=== PATIENT | female | born 1960 | race Asian ===

== ENCOUNTER → 2018-01-09 15:10 | Outpatient (CLI) | payer MEDICARE, MEDICAID, SELFPAY ==
--- NOTE | 2018-01-09 | DI.CT.S_ITS ---
PROCEDURE: CT CHEST WO CON INDICATIONS: SCLERODERMA TECHNIQUE: Noncontrast 2.0-2.5 mm thick sections acquired from the pulmonary apices to the posterior costophrenic angles. 7 mm thick coronal and sagittal MIP reformats were then acquired. A low radiation dose technique was utilized. COMPARISON: [facility], CT, ABDOMEN/PELVIS WITH CONTRAST, 06/13/2017, 14:39. FINDINGS: Image quality: Diagnostic, given the low radiation dose technique. Lungs and pleura: Lungs are clear with no evidence of interstitial process. No measurable nodules. There is mild linear density in the right anterior sulcus at the base of the middle lobe, probable scar. No pneumothorax or pleural effusion. Mediastinum: Heart size is normal. No pericardial effusion. No mediastinal adenopathy by size criteria. Thoracic aorta and central pulmonary arteries are normal in size. Esophagus is normal in caliber. No hiatal hernia. Bones and chest wall: No suspicious bony lesions. No vertebral body compression fractures. No axillary or supraclavicular adenopathy by size criteria. Thyroid gland appears mildly enlarged. Abdomen: Visualized upper abdomen solid organs and bowel loops appear normal in the absence of contrast. IMPRESSION: 1. No evidence of acute or chronic pulmonary disease. 2. Ill-defined calcifications posterior upper pole of the left kidney, not apparent as a lesion on prior CT with contrast. Renal ultrasound might be considered. Dictated by: Luis Armando Ramirez M.D. on 01/09/2018 at 15:57 Approved by: Luis Armando Ramirez M.D. on 01/09/2018 at 16:03
== END ==
PROVIDERS: PCP Physician Assistant Medical; Visit Provider Internal Medicine Rheumatology
DX: M34.9 Systemic sclerosis, unspecified (principal)
CPT/HCPCS: 71250

== ENCOUNTER → 2018-01-28 12:49 | Outpatient (CLI) | payer MEDICARE, MEDICAID, SELFPAY ==
--- NOTE | 2018-01-28 | DI.US.S_ITS ---
PROCEDURE: US RENAL COMPLETE INDICATIONS: LEFT RENAL CYST TECHNIQUE: Real-time scanning was performed of the kidneys and bladder, with image documentation. COMPARISON: [facility], CT, CT CHEST WO CON, 01/09/2018, 15:17. [facility], US, PELVIC COMPLETE, 08/19/2017, 9:52. [facility], MR, PELVIS W&WO CONTRAST, 07/07/2017, 10:04. [facility], US, PELVIC COMPLETE, 07/01/2017, 8:24. [facility], CT, ABDOMEN/PELVIS WITH CONTRAST, 06/13/2017, 14:39. FINDINGS: Kidneys: Kidneys are normal in size. Right kidney measures 9.9 cm long; left kidney measures 10.8 cm long. Right renal cortical thickness is 1.6 cm; left renal cortical thickness is 1.7 cm. Renal cortical echotexture is normal. No hydronephrosis or nephrolithiasis. No suspicious solid mass lesions. Bladder: Pre-void bladder volume is 650 mL. Post-void residual is 0 mL. Pre-void images demonstrate no intraluminal masses or stones. On pre-void images, neither ureteral jets are noted with color Doppler interrogation. (Of note, ureteral jets may not be detectable in up to 25% of cases due to insufficient differences in specific gravity between ureteral and bladder urine). Miscellaneous: No free pelvic fluid. IMPRESSION: Normal appearance of the kidneys and no renal cysts identified. Dictated by: Felix CORNELIUS Interpreted: Edwin Del Real MD on 01/28/2018 at 14:04 Approved by: Edwin Del Real M.D. on 01/28/2018 at 14:18
== END ==
PROVIDERS: PCP Physician Assistant Medical; Visit Provider Family Medicine
DX: N28.1 Cyst of kidney, acquired (principal)
CPT/HCPCS: 76770

== ENCOUNTER 2018-05-15 11:55 | Emergency (ER) | payer MEDICARE, MEDICAID, SELFPAY ==
[2018-05-15 12:04] VITALS: BP 146/87; PULSE 57; RESP 14; TEMP 36.4; O2SAT 100
--- NOTE | 2018-05-15 12:08 | DI.RAD.S_ITS ---
PROCEDURE: XR CHEST 2V INDICATIONS: chest pain TECHNIQUE: 2 views of the chest were acquired. COMPARISON: [facility], CT, CT CHEST WO CON, 01/09/2018, 15:17. FINDINGS: Surgical changes and devices: None. Lungs and pleura: No pleural effusions or pneumothorax. Lungs are clear. Mediastinum: Mediastinal contours are normal. Heart size is normal. Bones and chest wall: No suspicious bony abnormalities. Soft tissues appear unremarkable. IMPRESSION: No acute cardiopulmonary process is seen. Dictated by: Rizwan Virgen M.D. on 05/15/2018 at 11:47 Approved by: Rizwan Virgen M.D. on 05/15/2018 at 11:48
[2018-05-15] MEDS: ASPIRIN 81 MG TAB 324 MG PO (12:09)
--- NOTE | 2018-05-15 12:19 | ED.CHESTPAIN ---
HPI - Chest Pain <JUAN Villa - Last Filed: 05/15/18 22:13> General Chief Complaint: Chest Pain Stated Complaint: Chest pain Time Seen by Provider: 05/15/18 12:17 Source: patient Mode of arrival: ambulatory Limitations: no limitations History of Present Illness HPI narrative: 58-year-old female with history of chronic neck and upper back pain that is a nonsmokerhere for complaint of having chest pain that started around midnight. she states that she had a visit to her chiropractor yesterday who did a manipulation on her she states that she felt sore after this however the pain to her chest really started around midnight this morning. She denies any nausea vomiting. She denies shortness of breath. She does state it does hurt when she takes a deep breath. No trauma to the chest. Increased pain with movement of the chest wall. No fevers no chills. She does report increased pain with touch to the anterior chest wall. MD complaint: chest pain Related Data Home Medications Medication Instructions Recorded Confirmed clobetasol 1 applic TOPICAL DIRECTED 05/15/18 05/15/18 cyclobenzaprine 10 mg PO TID 05/15/18 05/15/18 olopatadine 1 drp OPHTHALMIC (EYE) DIRECTED 05/15/18 05/15/18 tizanidine 1 dose PO DIRECTED 05/15/18 05/15/18 triamcinolone acetonide 1 applic TOPICAL DIRECTED 05/15/18 05/15/18 Allergies Allergy/AdvReac Type Severity Reaction Status Date / Time No Known Drug Allergies Allergy Verified 05/15/18 12:07 Review of Systems <JUAN Villa - Last Filed: 05/15/18 22:13> Constitutional Denies chills, Denies fatigue, Denies fever(s), Denies lethargy and Denies weakness Eyes Denies change in vision, Denies eye discharge, Denies irritation and Denies loss of vision ENT Ears, Nose, Mouth, and Throat: Denies change in voice, Denies neck pain and Denies sore throat Cardiovascular Reports chest pain, Denies dyspnea and Denies dyspnea on exertion Respiratory Denies cough, Denies dyspnea, Denies dyspnea on exertion and Denies wheezing Gastrointestinal Gastrointestinal: Denies abdominal pain, Denies change in bowel habits, Denies diarrhea, Denies nausea and Denies vomiting Genitourinary Denies hematuria, Denies flank pain, Denies urinary incontinence and Denies urinary urgency Musculoskeletal Denies neck pain Integumentary/Breasts Denies pruritus, Denies erythema, Denies rash and Denies wounds Neurologic Denies confusion, Denies loss of vision and Denies weakness Psychiatric Denies anxiety, Denies confusion, Denies depression, Denies homicidal ideation and Denies suicidal ideation Endocrine Denies fatigue and Denies flushing Hematologic/Lymphatic Denies easy bruising Allergic/Immunologic Denies wheezing Exam <JUAN Villa - Last Filed: 05/15/18 22:13> Initial Vital Signs Initial Vital Signs: Vital Signs Temperature 97.6 F 05/15/18 12:04 Pulse Rate 57 L 05/15/18 12:04 Respiratory Rate 14 05/15/18 12:04 Blood Pressure 146/87 H 05/15/18 12:04 Pulse Oximetry 100 05/15/18 12:04 Const General: cooperative and well developed Nutritional Appearance: well nourished Orientation: alert, awake, oriented x3 and not confused HENPA Mouth: oral mucosae normal and moist mucous membranes Eyes Conjunctivae: conjunctivae normal Sclera: sclerae normal Pupils: PERRL EOM: EOM intact bilaterally Neck Neck: normal visual inspection, trachea midline, No lymphadenopathy, No midline deformity and No JVD Lymphatic: No lymphedema Chest Chest: tenderness Other: tenderness on palpation to the anterior chest wall and to the sternal area with palpation Resp Effort & Inspection: normal respiratory effort, able to speak in complete sentences, no respiratory distress and no use of accessory muscles Auscultation: clear to auscultation bilaterally, no rales, no rhonchi and no wheezes Cardio Rate: regular rate Rhythm: regular rhythm Heart Sounds: no click, no gallops, no murmurs and no rubs Pulses: normal peripheral pulses GI Inspection: non-distended Palpation: soft, no hepatosplenomegaly, No guarding, No pulsatile mass and No tender Auscultation: normal bowel sounds Skin General: no rashes or lesions noted, No jaundice and No petechiae Neuro General: alert, oriented x3, gait normal and no focal motor deficits Speech: speech normal <Kira Turpin DO - Last Filed: 05/16/18 08:38> Initial Vital Signs Initial Vital Signs: Vital Signs Temperature 97.6 F 05/15/18 12:04 Pulse Rate 57 L 05/15/18 12:04 Respiratory Rate 14 05/15/18 12:04 Blood Pressure 146/87 H 05/15/18 12:04 Pulse Oximetry 100 05/15/18 12:04 Scores <JUAN Villa - Last Filed: 05/15/18 22:13> HEART Score Heart Score history: Slightly Suspicious Heart Score EKG: Normal Heart Score Age: 45-64 years old Heart Score risk factors: No known risk factors Heart Score troponin: < or = to normal limit Heart Score Total: 1 Course <JUAN Villa - Last Filed: 05/15/18 22:13> Orders Ordered: Discontinued Medications Aspirin (Aspirin Chew) 324 mg PO NOW ONE Stop: 05/15/18 12:09 Last Admin: 05/15/18 12:09 Dose: 324 mg Vital Signs - 8 hr 05/15/18 12:04 Temperature 97.6 F Pulse Rate 57 L Respiratory Rate 14 Blood Pressure 146/87 H Pulse Oximetry 100 <Kira Turpin DO - Last Filed: 05/16/18 08:38> Orders Ordered: Discontinued Medications Aspirin (Aspirin Chew) 324 mg PO NOW ONE Stop: 05/15/18 12:09 Last Admin: 05/15/18 12:09 Dose: 324 mg Vital Signs - 8 hr 05/15/18 12:04 Temperature 97.6 F Pulse Rate 57 L Respiratory Rate 14 Blood Pressure 146/87 H Pulse Oximetry 100 MDM - Chest Pain <JUAN Villa - Last Filed: 05/15/18 22:13> Lab Data Result diagrams: 05/15/18 12:40 05/15/18 12:40 Lab Results 05/15/18 05/15/18 05/15/18 Range/Units 12:40 12:40 12:40 WBC 4.8 (4.5-11.0) X10^3/uL RBC 4.20 (4.0-5.2) X10^6/uL Hgb 13.3 (12.0-16.0) g/dL Hct 38.8 (36-46) % MCV 92.4 (80-100) fL MCH 31.6 (26-34) PG MCHC 34.3 (30-36) % RDW 12.0 (11.6-14.8) % Plt Count 311 (150-400) X10^3/uL Neut % (Auto) 53.1 (50-75) % Lymph % (Auto) 38.0 (25-40) % [place] % (Auto) 6.6 (3-14) % Eos % (Auto) 1.4 L (2-4) % Baso % (Auto) 0.9 (0-2) % Neut # (Auto) 2500 L (0941-5227) /uL PT 10.9 (10.1-12.7) SECONDS INR 1.0 (0.9-1.3) APTT 36 (26.4-36.2) SECONDS D-Dimer (<230) ng/mL Sodium 140 (137-145) mmol/L Potassium 3.5 (3.4-5.1) mmol/L Chloride 99 (98-107) mmol/L Carbon Dioxide 30 (22-32) mmol/L BUN 11 (7-17) mg/dL Creatinine 0.50 L (0.52-1.04) mg/dL Estimated GFR > 60.0 (>60) mL/min BUN/Creatinine Ratio 22.0 (6-22) Glucose 96 (70-100) mg/dL Calcium 9.7 (8.4-10.2) mg/dL Total Bilirubin 0.4 (0.2-1.3) mg/dL AST 32 (14-36) IU/L ALT 29 (9-52) IU/L Alkaline Phosphatase 56 (38-126) U/L Total Creatine Kinase 114 (30-135) U/L CK-MB (CK-2) 1.29 (<2.37) ng/mL CK-MB (CK-2) Rel Index 1.1 L (1.5-5.0) % Troponin I < 0.012 (0.01-0.034) ng/mL Total Protein 8.0 (6.3-8.2) g/dL Albumin 4.6 (3.5-5.0) g/dL Globulin 3.4 (1.7-4.1) g/dL Albumin/Globulin Ratio 1.4 (1.0-2.8) Lipase 46 (23-300) U/L 09/28/18 Range/Units 12:40 WBC (4.5-11.0) X10^3/uL RBC (4.0-5.2) X10^6/uL Hgb (12.0-16.0) g/dL Hct (36-46) % MCV (80-100) fL MCH (26-34) PG MCHC (30-36) % RDW (11.6-14.8) % Plt Count (150-400) X10^3/uL Neut % (Auto) (50-75) % Lymph % (Auto) (25-40) % [place] % (Auto) (3-14) % Eos % (Auto) (2-4) % Baso % (Auto) (0-2) % Neut # (Auto) (4091-3625) /uL PT (10.1-12.7) SECONDS INR (0.9-1.3) APTT (26.4-36.2) SECONDS D-Dimer < 200 (<230) ng/mL Sodium (137-145) mmol/L Potassium (3.4-5.1) mmol/L Chloride (98-107) mmol/L Carbon Dioxide (22-32) mmol/L BUN (7-17) mg/dL Creatinine (0.52-1.04) mg/dL Estimated GFR (>60) mL/min BUN/Creatinine Ratio (6-22) Glucose (70-100) mg/dL Calcium (8.4-10.2) mg/dL Total Bilirubin (0.2-1.3) mg/dL AST (14-36) IU/L ALT (9-52) IU/L Alkaline Phosphatase (38-126) U/L Total Creatine Kinase (30-135) U/L CK-MB (CK-2) (<2.37) ng/mL CK-MB (CK-2) Rel Index (1.5-5.0) % Troponin I (0.01-0.034) ng/mL Total Protein (6.3-8.2) g/dL Albumin (3.5-5.0) g/dL Globulin (1.7-4.1) g/dL Albumin/Globulin Ratio (1.0-2.8) Lipase (23-300) U/L Imaging Data Chest x-ray: Radiologist's impression: [address] [address] XRay Report Signed Patient: Stefan Resendez#: [id number] : 1Acct:[id number] Age/Sex: 58 / FDate of Service: 05/15/18 Loc: ED Accession Number: [id number] Procedure: XR chest 2V Ordering Provider: Kira Turpin D.O. PROCEDURE: XR CHEST 2V INDICATIONS: chest pain TECHNIQUE: 2 views of the chest were acquired. COMPARISON: [facility], CT, CT CHEST WO CON, 01/09/2018, 15:17. FINDINGS: Surgical changes and devices: None. Lungs and pleura: No pleural effusions or pneumothorax. Lungs are clear. Mediastinum: Mediastinal contours are normal. Heart size is normal. Bones and chest wall: No suspicious bony abnormalities. Soft tissues appear unremarkable. IMPRESSION: No acute cardiopulmonary process is seen. Dictated by: Rizwan Virgen M.D. on 05/15/2018 at 11:47 Approved by: Rizwan Virgen M.D. on 05/15/2018 at 11:48 ECG Data Interpretation: EKG shows normal sinus rhythm with no ST elevation or depression. No ectopy. Ventricular rate is 77. Pr interval of 149. QRS duration of 110. QT of 402. MDM Narrative Medical decision making narrative: EKG shows normal sinus rhythm with no ST elevation or depression. No ectopy. CBC and Chem panel were obtained were unremarkable. Troponin 12 hr post onset of chest pain was negative. D-dimer was obtained and was negative. Pain is reproducible with palpation to the anterior chest wall. Signs and symptoms presents as muscle skeletal pain to the chest wall. [id number] ibuprofen along with her already prescribed muscle relaxer for symptoms. Rest area. Follow up with primary care provider. Return emergency room for worsening symptoms. <Kira Turpin DO - Last Filed: 05/16/18 08:38> Lab Data Attestation: I reviewed the patient's lab results. Lab Results 05/15/18 05/15/18 05/15/18 Range/Units 12:40 12:40 12:40 WBC 4.8 (4.5-11.0) X10^3/uL RBC 4.20 (4.0-5.2) X10^6/uL Hgb 13.3 (12.0-16.0) g/dL Hct 38.8 (36-46) % MCV 92.4 (80-100) fL MCH 31.6 (26-34) PG MCHC 34.3 (30-36) % RDW 12.0 (11.6-14.8) % Plt Count 311 (150-400) X10^3/uL Neut % (Auto) 53.1 (50-75) % Lymph % (Auto) 38.0 (25-40) % [place] % (Auto) 6.6 (3-14) % Eos % (Auto) 1.4 L (2-4) % Baso % (Auto) 0.9 (0-2) % Neut # (Auto) 2500 L (7941-2060) /uL PT 10.9 (10.1-12.7) SECONDS INR 1.0 (0.9-1.3) APTT 36 (26.4-36.2) SECONDS D-Dimer (<230) ng/mL Sodium 140 (137-145) mmol/L Potassium 3.5 (3.4-5.1) mmol/L Chloride 99 (98-107) mmol/L Carbon Dioxide 30 (22-32) mmol/L BUN 11 (7-17) mg/dL Creatinine 0.50 L (0.52-1.04) mg/dL Estimated GFR > 60.0 (>60) mL/min BUN/Creatinine Ratio 22.0 (6-22) Glucose 96 (70-100) mg/dL Calcium 9.7 (8.4-10.2) mg/dL Total Bilirubin 0.4 (0.2-1.3) mg/dL AST 32 (14-36) IU/L ALT 29 (9-52) IU/L Alkaline Phosphatase 56 (38-126) U/L Total Creatine Kinase 114 (30-135) U/L CK-MB (CK-2) 1.29 (<2.37) ng/mL CK-MB (CK-2) Rel Index 1.1 L (1.5-5.0) % Troponin I < 0.012 (0.01-0.034) ng/mL Total Protein 8.0 (6.3-8.2) g/dL Albumin 4.6 (3.5-5.0) g/dL Globulin 3.4 (1.7-4.1) g/dL Albumin/Globulin Ratio 1.4 (1.0-2.8) Lipase 46 (23-300) U/L 05/15/18 Range/Units 12:40 WBC (4.5-11.0) X10^3/uL RBC (4.0-5.2) X10^6/uL Hgb (12.0-16.0) g/dL Hct (36-46) % MCV (80-100) fL MCH (26-34) PG MCHC (30-36) % RDW (11.6-14.8) % Plt Count (150-400) X10^3/uL Neut % (Auto) (50-75) % Lymph % (Auto) (25-40) % [place] % (Auto) (3-14) % Eos % (Auto) (2-4) % Baso % (Auto) (0-2) % Neut # (Auto) (3211-7712) /uL PT (10.1-12.7) SECONDS INR (0.9-1.3) APTT (26.4-36.2) SECONDS D-Dimer < 200 (<230) ng/mL Sodium (137-145) mmol/L Potassium (3.4-5.1) mmol/L Chloride (98-107) mmol/L Carbon Dioxide (22-32) mmol/L BUN (7-17) mg/dL Creatinine (0.52-1.04) mg/dL Estimated GFR (>60) mL/min BUN/Creatinine Ratio (6-22) Glucose (70-100) mg/dL Calcium (8.4-10.2) mg/dL Total Bilirubin (0.2-1.3) mg/dL AST (14-36) IU/L ALT (9-52) IU/L Alkaline Phosphatase (38-126) U/L Total Creatine Kinase (30-135) U/L CK-MB (CK-2) (<2.37) ng/mL CK-MB (CK-2) Rel Index (1.5-5.0) % Troponin I (0.01-0.034) ng/mL Total Protein (6.3-8.2) g/dL Albumin (3.5-5.0) g/dL Globulin (1.7-4.1) g/dL Albumin/Globulin Ratio (1.0-2.8) Lipase (23-300) U/L ECG Data Attestation: I personally reviewed and interpreted this ECG as follows: Prior ECG tracings: not available for review Interpretation: Normal sinus rhythm rate [address] changes or T-wave inversions CT interval 149 QTC 457 Discharge Plan Departure Patient Disposition: Home Clinical Impression: Acute costochondritis Discharge Date/Time: 05/15/18 13:32 Interventions: ED Discharge Assessment Last Done: 05/15/18 13:32 Instructions: DI for Costochondritis Activity Restrictions/Additional Instructions: laboratory results EKG and chest x-ray were obtained today and were negative. Signs and symptoms presents as chest wall muscle skeletal pain use [id number] ibuprofen as needed for any discomfort along with already prescribed muscle relaxer for symptoms. Rest area. Follow up with primary care provider return emergency room for any worsening symptoms. Prescriptions: No Action cyclobenzaprine 10 mg tablet 10 mg PO TID RF: 0 triamcinolone acetonide 0.1 % ointment 1 applic Topical DIRECTED RF: 0 clobetasol 0.05 % ointment 1 applic Topical DIRECTED RF: 0 olopatadine 0.2 % drops 1 drp ophthalmic (eye) DIRECTED RF: 0 tizanidine 4 mg tablet 1 dose PO DIRECTED RF: 0 Referrals: Bibi Samano PA-C [Primary Care Provider] - <Kira Turpin DO - Last Filed: 05/16/18 08:38> Cosign ED Attending Justinature Attestation: I was immediately available in the department for consultation. Documentation has been reviewed. I agree with assessment and plan.
--- NOTE | 2018-05-15 12:35 | ED_ITS ---
HPI - Chest Pain <JUAN Villa - Last Filed: 05/15/18 22:13> General Chief Complaint: Chest Pain Stated Complaint: Chest pain Time Seen by Provider: 05/15/18 12:17 Source: patient Mode of arrival: ambulatory Limitations: no limitations History of Present Illness HPI narrative: 58-year-old female with history of chronic neck and upper back pain that is a nonsmokerhere for complaint of having chest pain that started around midnight. she states that she had a visit to her chiropractor yesterday who did a manipulation on her she states that she felt sore after this however the pain to her chest really started around midnight this morning. She denies any nausea vomiting. She denies shortness of breath. She does state it does hurt when she takes a deep breath. No trauma to the chest. Increased pain with movement of the chest wall. No fevers no chills. She does report increased pain with touch to the anterior chest wall. MD complaint: chest pain Related Data Home Medications Medication Instructions Recorded Confirmed clobetasol 1 applic TOPICAL DIRECTED 05/15/18 05/15/18 cyclobenzaprine 10 mg PO TID 05/15/18 05/15/18 olopatadine 1 drp OPHTHALMIC (EYE) DIRECTED 05/15/18 05/15/18 tizanidine 1 dose PO DIRECTED 05/15/18 05/15/18 triamcinolone acetonide 1 applic TOPICAL DIRECTED 05/15/18 05/15/18 Allergies Allergy/AdvReac Type Severity Reaction Status Date / Time No Known Drug Allergies Allergy Verified 05/15/18 12:07 Review of Systems <JUAN Villa - Last Filed: 05/15/18 22:13> Constitutional Denies chills, Denies fatigue, Denies fever(s), Denies lethargy and Denies weakness Eyes Denies change in vision, Denies eye discharge, Denies irritation and Denies loss of vision ENT Ears, Nose, Mouth, and Throat: Denies change in voice, Denies neck pain and Denies sore throat Cardiovascular Reports chest pain, Denies dyspnea and Denies dyspnea on exertion Respiratory Denies cough, Denies dyspnea, Denies dyspnea on exertion and Denies wheezing Gastrointestinal Gastrointestinal: Denies abdominal pain, Denies change in bowel habits, Denies diarrhea, Denies nausea and Denies vomiting Genitourinary Denies hematuria, Denies flank pain, Denies urinary incontinence and Denies urinary urgency Musculoskeletal Denies neck pain Integumentary/Breasts Denies pruritus, Denies erythema, Denies rash and Denies wounds Neurologic Denies confusion, Denies loss of vision and Denies weakness Psychiatric Denies anxiety, Denies confusion, Denies depression, Denies homicidal ideation and Denies suicidal ideation Endocrine Denies fatigue and Denies flushing Hematologic/Lymphatic Denies easy bruising Allergic/Immunologic Denies wheezing Exam <JUAN Villa - Last Filed: 05/15/18 22:13> Initial Vital Signs Initial Vital Signs: Vital Signs Temperature 97.6 F 05/15/18 12:04 Pulse Rate 57 L 05/15/18 12:04 Respiratory Rate 14 05/15/18 12:04 Blood Pressure 146/87 H 05/15/18 12:04 Pulse Oximetry 100 05/15/18 12:04 Const General: cooperative and well developed Nutritional Appearance: well nourished Orientation: alert, awake, oriented x3 and not confused HENLA Mouth: oral mucosae normal and moist mucous membranes Eyes Conjunctivae: conjunctivae normal Sclera: sclerae normal Pupils: PERRL EOM: EOM intact bilaterally Neck Neck: normal visual inspection, trachea midline, No lymphadenopathy, No midline deformity and No JVD Lymphatic: No lymphedema Chest Chest: tenderness Other: tenderness on palpation to the anterior chest wall and to the sternal area with palpation Resp Effort & Inspection: normal respiratory effort, able to speak in complete sentences, no respiratory distress and no use of accessory muscles Auscultation: clear to auscultation bilaterally, no rales, no rhonchi and no wheezes Cardio Rate: regular rate Rhythm: regular rhythm Heart Sounds: no click, no gallops, no murmurs and no rubs Pulses: normal peripheral pulses GI Inspection: non-distended Palpation: soft, no hepatosplenomegaly, No guarding, No pulsatile mass and No tender Auscultation: normal bowel sounds Skin General: no rashes or lesions noted, No jaundice and No petechiae Neuro General: alert, oriented x3, gait normal and no focal motor deficits Speech: speech normal <Kira Turpin DO - Last Filed: 05/16/18 08:38> Initial Vital Signs Initial Vital Signs: Vital Signs Temperature 97.6 F 05/15/18 12:04 Pulse Rate 57 L 05/15/18 12:04 Respiratory Rate 14 05/15/18 12:04 Blood Pressure 146/87 H 05/15/18 12:04 Pulse Oximetry 100 05/15/18 12:04 Scores <JUAN Villa - Last Filed: 05/15/18 22:13> HEART Score Heart Score history: Slightly Suspicious Heart Score EKG: Normal Heart Score Age: 45-64 years old Heart Score risk factors: No known risk factors Heart Score troponin: < or = to normal limit Heart Score Total: 1 Course <JUAN Villa - Last Filed: 05/15/18 22:13> Orders Ordered: Discontinued Medications Aspirin (Aspirin Chew) 324 mg PO NOW ONE Stop: 05/15/18 12:09 Last Admin: 05/15/18 12:09 Dose: 324 mg Vital Signs - 8 hr 05/15/18 12:04 Temperature 97.6 F Pulse Rate 57 L Respiratory Rate 14 Blood Pressure 146/87 H Pulse Oximetry 100 <Kira Turpin DO - Last Filed: 05/16/18 08:38> Orders Ordered: Discontinued Medications Aspirin (Aspirin Chew) 324 mg PO NOW ONE Stop: 05/15/18 12:09 Last Admin: 05/15/18 12:09 Dose: 324 mg Vital Signs - 8 hr 05/15/18 12:04 Temperature 97.6 F Pulse Rate 57 L Respiratory Rate 14 Blood Pressure 146/87 H Pulse Oximetry 100 MDM - Chest Pain <JUAN Villa - Last Filed: 05/15/18 22:13> Lab Data Result diagrams: 05/15/18 12:40 05/15/18 12:40 Lab Results 05/15/18 05/15/18 05/15/18 Range/Units 12:40 12:40 12:40 WBC 4.8 (4.5-11.0) X10^3/uL RBC 4.20 (4.0-5.2) X10^6/uL Hgb 13.3 (12.0-16.0) g/dL Hct 38.8 (36-46) % MCV 92.4 (80-100) fL MCH 31.6 (26-34) PG MCHC 34.3 (30-36) % RDW 12.0 (11.6-14.8) % Plt Count 311 (150-400) X10^3/uL Neut % (Auto) 53.1 (50-75) % Lymph % (Auto) 38.0 (25-40) % [place] % (Auto) 6.6 (3-14) % Eos % (Auto) 1.4 L (2-4) % Baso % (Auto) 0.9 (0-2) % Neut # (Auto) 2500 L (4135-5455) /uL PT 10.9 (10.1-12.7) SECONDS INR 1.0 (0.9-1.3) APTT 36 (26.4-36.2) SECONDS D-Dimer (<230) ng/mL Sodium 140 (137-145) mmol/L Potassium 3.5 (3.4-5.1) mmol/L Chloride 99 (98-107) mmol/L Carbon Dioxide 30 (22-32) mmol/L BUN 11 (7-17) mg/dL Creatinine 0.50 L (0.52-1.04) mg/dL Estimated GFR > 60.0 (>60) mL/min BUN/Creatinine Ratio 22.0 (6-22) Glucose 96 (70-100) mg/dL Calcium 9.7 (8.4-10.2) mg/dL Total Bilirubin 0.4 (0.2-1.3) mg/dL AST 32 (14-36) IU/L ALT 29 (9-52) IU/L Alkaline Phosphatase 56 (38-126) U/L Total Creatine Kinase 114 (30-135) U/L CK-MB (CK-2) 1.29 (<2.37) ng/mL CK-MB (CK-2) Rel Index 1.1 L (1.5-5.0) % Troponin I < 0.012 (0.01-0.034) ng/mL Total Protein 8.0 (6.3-8.2) g/dL Albumin 4.6 (3.5-5.0) g/dL Globulin 3.4 (1.7-4.1) g/dL Albumin/Globulin Ratio 1.4 (1.0-2.8) Lipase 46 (23-300) U/L 09/28/18 Range/Units 12:40 WBC (4.5-11.0) X10^3/uL RBC (4.0-5.2) X10^6/uL Hgb (12.0-16.0) g/dL Hct (36-46) % MCV (80-100) fL MCH (26-34) PG MCHC (30-36) % RDW (11.6-14.8) % Plt Count (150-400) X10^3/uL Neut % (Auto) (50-75) % Lymph % (Auto) (25-40) % [place] % (Auto) (3-14) % Eos % (Auto) (2-4) % Baso % (Auto) (0-2) % Neut # (Auto) (9228-0075) /uL PT (10.1-12.7) SECONDS INR (0.9-1.3) APTT (26.4-36.2) SECONDS D-Dimer < 200 (<230) ng/mL Sodium (137-145) mmol/L Potassium (3.4-5.1) mmol/L Chloride (98-107) mmol/L Carbon Dioxide (22-32) mmol/L BUN (7-17) mg/dL Creatinine (0.52-1.04) mg/dL Estimated GFR (>60) mL/min BUN/Creatinine Ratio (6-22) Glucose (70-100) mg/dL Calcium (8.4-10.2) mg/dL Total Bilirubin (0.2-1.3) mg/dL AST (14-36) IU/L ALT (9-52) IU/L Alkaline Phosphatase (38-126) U/L Total Creatine Kinase (30-135) U/L CK-MB (CK-2) (<2.37) ng/mL CK-MB (CK-2) Rel Index (1.5-5.0) % Troponin I (0.01-0.034) ng/mL Total Protein (6.3-8.2) g/dL Albumin (3.5-5.0) g/dL Globulin (1.7-4.1) g/dL Albumin/Globulin Ratio (1.0-2.8) Lipase (23-300) U/L Imaging Data Chest x-ray: Radiologist's impression: [address] [address] XRay Report Signed Patient: Stefan Resendez#: [id number] : 1Acct:[id number] Age/Sex: 58 / FDate of Service: 05/15/18 Loc: ED Accession Number: [id number] Procedure: XR chest 2V Ordering Provider: Kira Turpin D.O. PROCEDURE: XR CHEST 2V INDICATIONS: chest pain TECHNIQUE: 2 views of the chest were acquired. COMPARISON: [facility], CT, CT CHEST WO CON, 01/09/2018, 15:17. FINDINGS: Surgical changes and devices: None. Lungs and pleura: No pleural effusions or pneumothorax. Lungs are clear. Mediastinum: Mediastinal contours are normal. Heart size is normal. Bones and chest wall: No suspicious bony abnormalities. Soft tissues appear unremarkable. IMPRESSION: No acute cardiopulmonary process is seen. Dictated by: Rizwan Virgen M.D. on 05/15/2018 at 11:47 Approved by: Rizwan Virgen M.D. on 05/15/2018 at 11:48 ECG Data Interpretation: EKG shows normal sinus rhythm with no ST elevation or depression. No ectopy. Ventricular rate is 77. Pr interval of 149. QRS duration of 110. QT of 402. MDM Narrative Medical decision making narrative: EKG shows normal sinus rhythm with no ST elevation or depression. No ectopy. CBC and Chem panel were obtained were unremarkable. Troponin 12 hr post onset of chest pain was negative. D-dimer was obtained and was negative. Pain is reproducible with palpation to the anterior chest wall. Signs and symptoms presents as muscle skeletal pain to the chest wall. Aqla-caz-kdzsbbh ibuprofen along with her already prescribed muscle relaxer for symptoms. Rest area. Follow up with primary care provider. Return emergency room for worsening symptoms. <Kira Turpin DO - Last Filed: 05/16/18 08:38> Lab Data Attestation: I reviewed the patient's lab results. Lab Results 05/15/18 05/15/18 05/15/18 Range/Units 12:40 12:40 12:40 WBC 4.8 (4.5-11.0) X10^3/uL RBC 4.20 (4.0-5.2) X10^6/uL Hgb 13.3 (12.0-16.0) g/dL Hct 38.8 (36-46) % MCV 92.4 (80-100) fL MCH 31.6 (26-34) PG MCHC 34.3 (30-36) % RDW 12.0 (11.6-14.8) % Plt Count 311 (150-400) X10^3/uL Neut % (Auto) 53.1 (50-75) % Lymph % (Auto) 38.0 (25-40) % [place] % (Auto) 6.6 (3-14) % Eos % (Auto) 1.4 L (2-4) % Baso % (Auto) 0.9 (0-2) % Neut # (Auto) 2500 L (4559-8777) /uL PT 10.9 (10.1-12.7) SECONDS INR 1.0 (0.9-1.3) APTT 36 (26.4-36.2) SECONDS D-Dimer (<230) ng/mL Sodium 140 (137-145) mmol/L Potassium 3.5 (3.4-5.1) mmol/L Chloride 99 (98-107) mmol/L Carbon Dioxide 30 (22-32) mmol/L BUN 11 (7-17) mg/dL Creatinine 0.50 L (0.52-1.04) mg/dL Estimated GFR > 60.0 (>60) mL/min BUN/Creatinine Ratio 22.0 (6-22) Glucose 96 (70-100) mg/dL Calcium 9.7 (8.4-10.2) mg/dL Total Bilirubin 0.4 (0.2-1.3) mg/dL AST 32 (14-36) IU/L ALT 29 (9-52) IU/L Alkaline Phosphatase 56 (38-126) U/L Total Creatine Kinase 114 (30-135) U/L CK-MB (CK-2) 1.29 (<2.37) ng/mL CK-MB (CK-2) Rel Index 1.1 L (1.5-5.0) % Troponin I < 0.012 (0.01-0.034) ng/mL Total Protein 8.0 (6.3-8.2) g/dL Albumin 4.6 (3.5-5.0) g/dL Globulin 3.4 (1.7-4.1) g/dL Albumin/Globulin Ratio 1.4 (1.0-2.8) Lipase 46 (23-300) U/L 05/15/18 Range/Units 12:40 WBC (4.5-11.0) X10^3/uL RBC (4.0-5.2) X10^6/uL Hgb (12.0-16.0) g/dL Hct (36-46) % MCV (80-100) fL MCH (26-34) PG MCHC (30-36) % RDW (11.6-14.8) % Plt Count (150-400) X10^3/uL Neut % (Auto) (50-75) % Lymph % (Auto) (25-40) % [place] % (Auto) (3-14) % Eos % (Auto) (2-4) % Baso % (Auto) (0-2) % Neut # (Auto) (9531-3652) /uL PT (10.1-12.7) SECONDS INR (0.9-1.3) APTT (26.4-36.2) SECONDS D-Dimer < 200 (<230) ng/mL Sodium (137-145) mmol/L Potassium (3.4-5.1) mmol/L Chloride (98-107) mmol/L Carbon Dioxide (22-32) mmol/L BUN (7-17) mg/dL Creatinine (0.52-1.04) mg/dL Estimated GFR (>60) mL/min BUN/Creatinine Ratio (6-22) Glucose (70-100) mg/dL Calcium (8.4-10.2) mg/dL Total Bilirubin (0.2-1.3) mg/dL AST (14-36) IU/L ALT (9-52) IU/L Alkaline Phosphatase (38-126) U/L Total Creatine Kinase (30-135) U/L CK-MB (CK-2) (<2.37) ng/mL CK-MB (CK-2) Rel Index (1.5-5.0) % Troponin I (0.01-0.034) ng/mL Total Protein (6.3-8.2) g/dL Albumin (3.5-5.0) g/dL Globulin (1.7-4.1) g/dL Albumin/Globulin Ratio (1.0-2.8) Lipase (23-300) U/L ECG Data Attestation: I personally reviewed and interpreted this ECG as follows: Prior ECG tracings: not available for review Interpretation: Normal sinus rhythm rate [address] changes or T-wave inversions TN interval 149 QTC 457 Discharge Plan Departure Patient Disposition: Home Clinical Impression: Acute costochondritis Discharge Date/Time: 05/15/18 13:32 Interventions: ED Discharge Assessment Last Done: 05/15/18 13:32 Instructions: DI for Costochondritis Activity Restrictions/Additional Instructions: laboratory results EKG and chest x-ray were obtained today and were negative. Signs and symptoms presents as chest wall muscle skeletal pain use over-the- counter ibuprofen as needed for any discomfort along with already prescribed muscle relaxer for symptoms. Rest area. Follow up with primary care provider return emergency room for any worsening symptoms. Prescriptions: No Action cyclobenzaprine 10 mg tablet 10 mg PO TID RF: 0 triamcinolone acetonide 0.1 % ointment 1 applic Topical DIRECTED RF: 0 clobetasol 0.05 % ointment 1 applic Topical DIRECTED RF: 0 olopatadine 0.2 % drops 1 drp ophthalmic (eye) DIRECTED RF: 0 tizanidine 4 mg tablet 1 dose PO DIRECTED RF: 0 Referrals: Bibi Samano PA-C [Primary Care Provider] - <Kira Turpin DO - Last Filed: 05/16/18 08:38> Cosign ED Attending Justinature Attestation: I was immediately available in the department for consultation. Documentation has been reviewed. I agree with assessment and plan.
[2018-05-15 12:47] LABS: Add Manual Diff / Slide Review NO; Basophils Percent Auto 0.9 % (0-2); Eosinophils Percent Auto 1.4 % (2-4); Hematocrit 38.8 % (36-46); Hemoglobin 13.3 g/dL (12.0-16.0); Mean Corpuscular HGB Conc 34.3 % (30-36); Mean Corpuscular Hemoglobin 31.6 PG (26-34); Mean Corpuscular Volume 92.4 fL (80-100); Monocytes Percent Auto 6.6 % (3-14); Neutrophils Absolute Auto 2500 /uL (3000-5900); Neutrophils Percent Auto 53.1 % (50-75); Platelet Count 311 X10^3/uL (150-400); White Blood Cell Count 4.8 X10^3/uL (4.5-11.0)
[2018-05-15 12:54] LABS: Prothrombin Time 10.9 SECONDS (10.1-12.7)
[2018-05-15 12:56] LABS: PTT Partial Thromboplastin Tim 36 SECONDS (26.4-36.2)
[2018-05-15 12:57] LABS: Alanine Aminotransferase 29 IU/L (9-52); Albumin 4.6 g/dL (3.5-5.0); Albumin Globulin Ratio 1.4 (1.0-2.8); Alkaline Phosphatase 56 U/L (38-126); Aspartate Aminotransferase 32 IU/L (14-36); Bilirubin Total 0.4 mg/dL (0.2-1.3); Blood Urea Nitrogen 11 mg/dL (7-17); Calcium 9.7 mg/dL (8.4-10.2); Carbon Dioxide 30 mmol/L (22-32); Chloride 99 mmol/L (98-107); Creatine Kinase 114 U/L (30-135); Estimated Glomerular Filt Rate > 60.0 mL/min (>60); Globulin 3.4 g/dL (1.7-4.1); Glucose 96 mg/dL (70-100); HEMOLYSIS < 15 (0-50); Lipase 46 U/L (23-300); Potassium 3.5 mmol/L (3.4-5.1); Sodium 140 mmol/L (137-145)
[2018-05-15 13:06] LABS: D Dimer < 200 ng/mL (<230)
[2018-05-15 13:09] LABS: Troponin I < 0.012 ng/mL (0.01-0.034)
[2018-05-15 13:13] LABS: CKMB % Relative Index 1.1 % (1.5-5.0); Creatine Kinase MB 1.29 ng/mL (<2.37)
[2018-05-15 13:32] VITALS: BP 113/67; PULSE 59; RESP 18; O2SAT 100
== END 2018-05-15 13:32 | disposition home or self-care (01) ==
PROVIDERS: Emergency Medicine; Emergency Provider Nurse Practitioner Family; PCP Physician Assistant Medical
DX: M94.0 Chondrocostal junction syndrome [Tietze] (principal)
CPT/HCPCS: 71046; 80053; 82550; 82553; 83690; 84484; 85025; 85379; 85610; 85730; 93005; 99282; 99285

== ENCOUNTER 2018-08-01 12:33 | Emergency (ER) | payer MEDICARE, MEDICAID, SELFPAY ==
[2018-08-01 12:36] VITALS: BP 139/83; PULSE 60; RESP 16; TEMP 36.9; O2SAT 100
--- NOTE | 2018-08-01 12:36 | DI.CT.S_ITS ---
PROCEDURE: CT HEAD/BRAIN WO CON INDICATIONS: double vision TECHNIQUE: Noncontrast 4.5 mm thick angled axial sections acquired from the foramen magnum to the vertex, with coronal and sagittal reformats. For radiation dose reduction, the following was used: automated exposure control, adjustment of mA and/or kV according to patient size. COMPARISON: [facility], CT, CT CHEST WO CON, 01/09/2018, 15:17. [facility], CT, ABDOMEN/PELVIS WITH CONTRAST, 06/13/2017, 14:39. FINDINGS: Image quality: Excellent. CSF spaces: Basal cisterns are patent. No extra-axial fluid collections. Ventricles are normal in size and shape. Brain: No midline shift. No intracranial masses or hemorrhage. Bush-white matter interface is normal. Skull and face: Calvarium and visualized facial bones are intact, without suspicious lesions. Sinuses: Visualized sinuses and mastoids are clear. IMPRESSION: No acute intracranial abnormality. Dictated by: Meliton Morgan M.D. on 08/01/2018 at 13:32 Approved by: Meliton Morgan M.D. on 08/01/2018 at 13:41
[2018-08-01 13:00] VITALS: BP 146/100; PULSE 50; O2SAT 100
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
[2018-08-01] MEDS: ONDANSETRON 4 MG ODT PO (13:13)
[2018-08-01] MEDS: KETOROLAC 60 MG/2 ML VIAL IM (13:13)
[2018-08-01 13:30] VITALS: BP 115/70; PULSE 52; O2SAT 100
[2018-08-01 14:15] VITALS: BP 138/77; PULSE 53; O2SAT 100
== END 2018-08-01 14:16 | disposition home or self-care (01) ==
PROVIDERS: Emergency Provider Emergency Medicine; PCP Physician Assistant Medical
DX: S09.90XA Unspecified injury of head, initial encounter (principal); R51 Headache; W22.8XXA Striking against or struck by other objects, initial encounter
CPT/HCPCS: 70450; 96372; 99282; 99284; J1885

== ENCOUNTER 2019-05-20 18:06 | Emergency (ER) | payer MEDICARE, MEDICAID, SELFPAY ==
[2019-05-20 18:24] VITALS: BP 142/76; PULSE 58; RESP 14; TEMP 36.5; O2SAT 98; BMI 21.3
[2019-05-20 18:35] LABS: Bacteria Urine None Seen; WBC Urine None Seen (0-5/HPF)
[2019-05-20 18:41] LABS: Culture Indicated Urine Cult Not Indicated; RBC Urine 5-10/HPF (0-5/HPF)
[2019-05-20 18:59] LABS: Add Manual Diff / Slide Review NO; Basophils Absolute Auto 0 /uL (0-100); Basophils Percent Auto 0.7 % (0-2); Eosinophils Absolute Auto 300 /uL (0-450); Eosinophils Percent Auto 6.5 % (2-4); Hematocrit 37.8 % (36-46); Hemoglobin 12.7 g/dL (12.0-16.0); Lymphocytes Absolute Auto 1700 /uL (1100-4500); Mean Corpuscular HGB Conc 33.5 % (30-36); Mean Corpuscular Hemoglobin 31.6 PG (26-34); Mean Corpuscular Volume 94.4 fL (80-100); Monocytes Absolute Auto 300 /uL (0-900); Monocytes Percent Auto 6.8 % (3-14); Neutrophils Absolute Auto 1900 /uL (1500-7000); Platelet Count 319 X10^3/uL (150-400); Red Blood Cell Count 4.01 X10^6/uL (4.0-5.2); Red Cell Distribution Width 13.2 % (11.6-14.8); White Blood Cell Count 4.2 X10^3/uL (4.5-11.0)
[2019-05-20 19:08] LABS: PTT Partial Thromboplastin Tim 37 SECONDS (26.4-36.2)
[2019-05-20 19:09] LABS: Alanine Aminotransferase 26 IU/L (9-52); Albumin 4.8 g/dL (3.5-5.0); Albumin Globulin Ratio 1.4 (1.0-2.8); Alkaline Phosphatase 68 U/L (38-126); Aspartate Aminotransferase 35 IU/L (14-36); Bilirubin Total 0.6 mg/dL (0.2-1.3); Blood Urea Nitrogen 10 mg/dL (7-17); Calcium 9.8 mg/dL (8.4-10.2); Carbon Dioxide 28 mmol/L (22-32); Chloride 99 mmol/L (98-107); Estimated Glomerular Filt Rate > 60.0 mL/min (>60); Globulin 3.5 g/dL (1.7-4.1); Glucose 103 mg/dL (70-100); HEMOLYSIS < 15 (0-50); Lipase 40 U/L (23-300); Potassium 3.6 mmol/L (3.4-5.1); Sodium 138 mmol/L (137-145); Total Protein 8.3 g/dL (6.3-8.2)
--- NOTE | 2019-05-20 19:32 | DI.CT.S_ITS ---
PROCEDURE: CT KIDNEY URETER BLADDER (KUB) INDICATIONS: RLQ pain, hematuria, stone? TECHNIQUE: Noncontrast 5 mm thick sections acquired from the diaphragms to the symphysis. 5 mm thick coronal and sagittal reformats were then performed. For radiation dose reduction, the following was used: automated exposure control, adjustment of mA and/or kV according to patient size. COMPARISON: [facility], CT, ABDOMEN/PELVIS WITH CONTRAST, 06/13/2017, 14:39. FINDINGS: Image quality: Excellent. Lung bases: Lung bases are clear. Heart size is normal. Urinary system: Both kidneys are normal in size. No kidney stones. No hydronephrosis or perinephric fat stranding. Both ureters appear non-dilated throughout their expected courses. Bladder wall thickness is normal; no calcified bladder stones. Other solid organs: Liver is normal in size. Gallbladder is within normal limits. Pancreas is normal in contours. Spleen is normal in size. No adrenal nodules. Peritoneum and bowel: Unenhanced bowel loops demonstrate normal wall thickness and caliber. No free fluid or air. Normal appendix. Nodes and vessels: No retroperitoneal or mesenteric adenopathy by size criteria. Aorta and inferior vena cava are normal in caliber. Abdominal wall: No ventral hernias. Pelvis: No free pelvic fluid. No inguinal hernias or adenopathy. Bones: No suspicious bony lesions. No vertebral body compression fractures. IMPRESSION: 1. No evidence of urinary tract calcification, nor obstruction. 2. Normal appendix. Dictated by: Austin Anna M.D. on 05/20/2019 at 19:54 Approved by: Austin Anna M.D. on 05/20/2019 at 19:55
--- NOTE | 2019-05-20 19:38 | ED.ABDPAIN ---
HPI - Abdominal Pain General Chief Complaint: Abdominal Pain Stated Complaint: right lower abdominal pain, sent for stat CT Time Seen by Provider: 05/20/19 18:18 Source: patient Mode of arrival: Ambulatory Limitations: no limitations History of Present Illness HPI narrative: 59-year-old female nonsmoker with noncontributory medical history presents from her primary care provider's office with a chief complaint of right lower quadrant pain over the past few days and an office urinalysis noting blood in the absence of infection. Patient states her pain is worse when she moves and improves with rest but feels like it has radiated down a bit from her side into her groin. Her primary is concern for a kidney stone. She denies any change in her appetite nor she had any fever or chills. She has had no nausea, vomiting but occasionally some loose stool. She denies recent travel, injury, use of antibiotics or exposure to bad food. MD complaint: abdominal pain Onset (ago): day(s) Pain Consistency: colicky Location: RLQ Severity: mild Quality: cramping Radiation: R flank Relieving factors: rest Exacerbating factors: movement Associated symptoms: denies other symptoms Related Data Home Medications Medication Instructions Recorded Confirmed clobetasol 1 applic TOPICAL DIRECTED 05/15/18 08/01/18 cyclobenzaprine 10 mg PO TID 05/15/18 08/01/18 olopatadine 1 drp OPHTHALMIC (EYE) DIRECTED 05/15/18 08/01/18 triamcinolone acetonide 1 applic TOPICAL DIRECTED 05/15/18 08/01/18 Allergies Allergy/AdvReac Type Severity Reaction Status Date / Time No Known Drug Allergies Allergy Verified 05/20/19 18:24 Review of Systems Constitutional Constitutional: Denies chills, Denies fatigue, Denies fever(s), Denies frequent falls, Denies lethargy and Denies weakness Eyes Eyes: Denies change in vision, Denies eye discharge, Denies irritation and Denies loss of vision ENT Ears, Nose, Mouth, and Throat: Denies change in voice, Denies dizziness, Denies neck pain, Denies sore throat and Denies throat swelling Cardiovascular Cardiovascular: Denies chest pain, Denies irregular heart rhythm, Denies lightheadedness, Denies palpitations, Denies dyspnea, Denies dyspnea on exertion and Denies orthopnea Respiratory Respiratory: Denies cough, Denies dyspnea, Denies dyspnea on exertion and Denies wheezing Gastrointestinal Gastrointestinal: Reports abdominal pain, Denies change in bowel habits, Denies diarrhea, Denies nausea and Denies vomiting Genitourinary Genitourinary: Denies hematuria, Denies flank pain, Denies urinary incontinence and Denies urinary urgency Musculoskeletal Musculoskeletal: Denies back pain, Denies muscle weakness, Denies neck pain, Denies numbness and Denies tingling Integumentary/Breasts Skin/Breast: Denies pruritus, Denies erythema, Denies rash and Denies wounds Neurologic Neurologic: Denies behavioral changes, Denies confusion, Denies dizziness, Denies frequent falls, Denies loss of vision, Denies numbness, Denies tingling and Denies weakness Psychiatric Psychiatric: Denies anxiety, Denies behavioral changes, Denies confusion, Denies depression, Denies homicidal ideation and Denies suicidal ideation Endocrine Endocrine: Denies fatigue, Denies flushing and Denies palpitations Hematologic/Lymphatic Hematologic/Lymphatic: Denies easy bruising Allergic/Immunologic Allergic/Immunologic: Denies urticaria, Denies throat swelling and Denies wheezing [facility] Medical History Chronic back pain (Acute) Social History Smoking Status: Never smoker Social History Smoking Status: Never smoker Exam Narrative Exam Narrative: GENERAL: [59] year old patient appears stated age. Well-nourished, well-developed patient, in mild distress. HEAD: Atraumatic. Normocephalic. EYES: Pupils equal round and reactive. Extraocular motions intact. No scleral icterus. No injection or drainage. ENT: Nose without bleeding, purulent drainage. Throat without erythema, tonsillar hypertrophy or exudate. Airway patent. NECK: Trachea midline. Non tender CARDIOVASCULAR: Regular rate and rhythm without murmurs, gallops, or rubs. RESPIRATORY: Clear to auscultation. Breath sounds equal bilaterally. No wheezes, rales, or rhonchi. GASTROINTESTINAL: Abdomen soft, mild tenderness in the right lower quadrant no guarding, nondistended. EXTREMITIES: No edema or joint tenderness. BACK: Nontender without deformity or crepitance. No flank tenderness. NEURO: AOx3. SKIN: No rash or erythema of visible areas Initial Vital Signs Initial Vital Signs: Vital Signs Temperature 97.7 F 05/20/19 18:24 Pulse Rate 58 L 05/20/19 18:24 Respiratory Rate 14 05/20/19 18:24 Blood Pressure 142/76 H 05/20/19 18:24 Pulse Oximetry 98 05/20/19 18:24 Course Orders Ordered: ED Orders 05/20/19 18:19 Urine Microscopic Stat 05/20/19 18:50 Complete Blood Count AUTO DIFF Stat Comprehensive Metabolic Panel Stat Lipase Stat Partial Thromboplastin Time Stat Prothrombin Time INR Stat 05/20/19 19:32 CT kidney ureter bladder (KUB) Stat Discontinued Medications Sodium Chloride (Normal Saline 0.9%) 1,000 mls @ 1,000 mls/hr IV BOLUS ONE Stop: 05/20/19 20:31 Last Infusion: 05/20/19 21:09 Dose: 0 mls/hr Documented by: Admin: 05/20/19 19:55 Dose: 1,000 mls/hr Documented by: NARGIS Vital Signs Vital signs: Vital Signs - 8 hr 05/20/19 20:31 Pulse Rate 54 L Respiratory Rate 16 Blood Pressure [Right Arm] 121/85 Pulse Oximetry 100 MDM - Abdominal Pain Lab Data Result diagrams: 05/20/19 18:50 05/20/19 18:50 Labs: Lab Results 05/20/19 05/20/19 05/20/19 Range/Units 18:19 18:50 18:50 WBC 4.2 L (4.5-11.0) X10^3/uL RBC 4.01 (4.0-5.2) X10^6/uL Hgb 12.7 (12.0-16.0) g/dL Hct 37.8 (36-46) % MCV 94.4 (80-100) fL MCH 31.6 (26-34) PG MCHC 33.5 (30-36) % RDW 13.2 (11.6-14.8) % Plt Count 319 (150-400) X10^3/uL Neut % (Auto) 45.0 L (50-75) % Lymph % (Auto) 41.0 H (25-40) % Payette % (Auto) 6.8 (3-14) % Eos % (Auto) 6.5 H (2-4) % Baso % (Auto) 0.7 (0-2) % Neut # (Auto) 1900 (0574-7003) /uL Lymph # (Auto) 1700 (2699-5341) /uL Payette # (Auto) 300 (0-900) /uL Eos # (Auto) 300 (0-450) /uL Baso # (Auto) 0 (0-100) /uL PT 11.0 (10.1-12.7) SECONDS INR 1.0 (0.9-1.3) APTT 37 H (26.4-36.2) SECONDS Sodium (137-145) mmol/L Potassium (3.4-5.1) mmol/L Chloride (98-107) mmol/L Carbon Dioxide (22-32) mmol/L BUN (7-17) mg/dL Creatinine (0.52-1.04) mg/dL Estimated GFR (>60) mL/min BUN/Creatinine Ratio (6-22) Glucose (70-100) mg/dL Calcium (8.4-10.2) mg/dL Total Bilirubin (0.2-1.3) mg/dL AST (14-36) IU/L ALT (9-52) IU/L Alkaline Phosphatase (38-126) U/L Total Protein (6.3-8.2) g/dL Albumin (3.5-5.0) g/dL Globulin (1.7-4.1) g/dL Albumin/Globulin Ratio (1.0-2.8) Lipase (23-300) U/L Urine RBC 5-10/hpf H (0-5/HPF) Urine WBC None seen (0-5/HPF) Urine Bacteria None seen (None) Ur Culture Indicated? Cult not indicated 05/20/19 Range/Units 18:50 WBC (4.5-11.0) X10^3/uL RBC (4.0-5.2) X10^6/uL Hgb (12.0-16.0) g/dL Hct (36-46) % MCV (80-100) fL MCH (26-34) PG MCHC (30-36) % RDW (11.6-14.8) % Plt Count (150-400) X10^3/uL Neut % (Auto) (50-75) % Lymph % (Auto) (25-40) % Payette % (Auto) (3-14) % Eos % (Auto) (2-4) % Baso % (Auto) (0-2) % Neut # (Auto) (3977-4092) /uL Lymph # (Auto) (9254-4580) /uL Payette # (Auto) (0-900) /uL Eos # (Auto) (0-450) /uL Baso # (Auto) (0-100) /uL PT (10.1-12.7) SECONDS INR (0.9-1.3) APTT (26.4-36.2) SECONDS Sodium 138 (137-145) mmol/L Potassium 3.6 (3.4-5.1) mmol/L Chloride 99 (98-107) mmol/L Carbon Dioxide 28 (22-32) mmol/L BUN 10 (7-17) mg/dL Creatinine 0.50 L (0.52-1.04) mg/dL Estimated GFR > 60.0 (>60) mL/min BUN/Creatinine Ratio 20.0 (6-22) Glucose 103 H (70-100) mg/dL Calcium 9.8 (8.4-10.2) mg/dL Total Bilirubin 0.6 (0.2-1.3) mg/dL AST 35 (14-36) IU/L ALT 26 (9-52) IU/L Alkaline Phosphatase 68 (38-126) U/L Total Protein 8.3 H (6.3-8.2) g/dL Albumin 4.8 (3.5-5.0) g/dL Globulin 3.5 (1.7-4.1) g/dL Albumin/Globulin Ratio 1.4 (1.0-2.8) Lipase 40 (23-300) U/L Urine RBC (0-5/HPF) Urine WBC (0-5/HPF) Urine Bacteria (None) Ur Culture Indicated? Point of care testing: Urine Dip Bedside Urine Glucose Negative Bedside Urine Bilirubin - Negative Bedside Urine Ketone - Negative Urine Specific Gates 1.005 Bedside Urine Occult Blood ++ Bedside Urine pH 7.0 Bedside Urine Protein - Negative Bedside Urine Urobilinogen - Negative Bedside Urine Nitrite - Negative Bedside Urine Leukocytes - Negative Esterase Imaging Data CT KUB: Radiologist's impression: Stefan Resendez C 59 F [address] [address] [address] Scan Report Signed Patient: Stefan Resendez CMR#: [id number] : [id number] Age/Sex: 59 / FDate of Service: 05/20/19 Loc: ED Accession Number: [id number] Procedure: CT kidney ureter bladder (KUB) Ordering Provider: Mario Christiansen D.O. PROCEDURE: CT KIDNEY URETER BLADDER (KUB) INDICATIONS: RLQ pain, hematuria, stone? TECHNIQUE: Noncontrast 5 mm thick sections acquired from the diaphragms to the symphysis. 5 mm thick coronal and sagittal reformats were then performed. For radiation dose reduction, the following was used: automated exposure control, adjustment of mA and/or kV according to patient size. COMPARISON: Located Within [facility], CT, ABDOMEN/PELVIS WITH CONTRAST, 06/13/2017, 14:39. FINDINGS: Image quality: Excellent. Lung bases: Lung bases are clear. Heart size is normal. Urinary system: Both kidneys are normal in size. No kidney stones. No hydronephrosis or perinephric fat stranding. Both ureters appear non-dilated throughout their expected courses. Bladder wall thickness is normal; no calcified bladder stones. Other solid organs: Liver is normal in size. Gallbladder is within normal limits. Pancreas is normal in contours. Spleen is normal in size. No adrenal nodules. Peritoneum and bowel: Unenhanced bowel loops demonstrate normal wall thickness and caliber. No free fluid or air. Normal appendix. Nodes and vessels: No retroperitoneal or mesenteric adenopathy by size criteria. Aorta and inferior vena cava are normal in caliber. Abdominal wall: No ventral hernias. Pelvis: No free pelvic fluid. No inguinal hernias or adenopathy. Bones: No suspicious bony lesions. No vertebral body compression fractures. IMPRESSION: 1. No evidence of urinary tract calcification, nor obstruction. 2. Normal appendix. Dictated by: Austin Anna M.D. on 05/20/2019 at 19:54 Approved by: Austin Anna M.D. on 05/20/2019 at 19:55 Discharge Plan Departure Patient Disposition: Home Clinical Impression: Abdominal pain in female patient Discharge Date/Time: 05/20/19 21:28 Instructions: DI for Abdominal Pain-Adult Activity Restrictions/Additional Instructions: *You have been diagnosed with [ Right lower quadrant pain ] *What to do: *Take medications as directed *Follow up with your primary care provider in 2-3 days, call for an appointment. Let them know you were seen in the Emergency Department and that we ask that you be seen in follow up *Return to ER if you should have any new, worsening or concerning symptoms Prescriptions: No Action cyclobenzaprine 10 mg tablet 10 mg PO TID RF: 0 triamcinolone acetonide 0.1 % ointment 1 applic Topical DIRECTED RF: 0 clobetasol 0.05 % ointment 1 applic Topical DIRECTED RF: 0 olopatadine 0.2 % drops 1 drp ophthalmic (eye) DIRECTED RF: 0 Referrals: Bibi Samano PA-C [Primary Care Provider] -
[2019-05-20] MEDS: SODIUM CHLORIDE 0.9% 1,000 ML 1000 ML IV (19:55)
[2019-05-20 20:31] VITALS: BP 121/85; PULSE 54; RESP 16; O2SAT 100
== END 2019-05-20 21:28 | disposition home or self-care (01) ==
PROVIDERS: Emergency Provider Emergency Medicine; PCP Physician Assistant Medical
DX: R10.31 Right lower quadrant pain (principal)
CPT/HCPCS: 36415; 74176; 80053; 81003; 81015; 83690; 85025; 85610; 85730; 96360; 99283; 99284

== ENCOUNTER → 2019-08-10 10:13 | Outpatient (CLI) | payer MEDICARE, MEDICAID, SELFPAY ==
--- NOTE | 2019-08-10 | DI.CT.S_ITS ---
PROCEDURE: CT CERVICAL SPINE WO CON INDICATIONS: Cervicalgia TECHNIQUE: Noncontrast 3 mm thick sections acquired from the skull base to the T4 level. Sagittal and coronal reformats were then constructed. For radiation dose reduction, the following was used: automated exposure control, adjustment of mA and/or kV according to patient size. COMPARISON: None. FINDINGS: Image quality: Excellent. Bones: No fractures or dislocations. Visualized superior ribs are intact. Soft tissues: Prevertebral soft tissues are normal in thickness. No paravertebral hematomas. No apical pneumothoraces. The thyroid gland has a heterogeneous appearance and low density nodules are present throughout. IMPRESSION: 1. No acute cervical spine injury. 2. Low-density thyroid nodules which are incompletely characterized. If further characterization is warranted, non-emergent thyroid ultrasound could be used. Dictated by: Zo Garcia M.D. on 08/10/2019 at 9:58 Approved by: Zo Garcia M.D. on 08/10/2019 at 10:00
== END ==
PROVIDERS: PCP Physician Assistant Medical; Visit Provider Physician Assistant Medical
DX: M54.2 Cervicalgia (principal); E04.2 Nontoxic multinodular goiter
CPT/HCPCS: 72125

== ENCOUNTER → 2020-03-23 13:08 | Outpatient (CLI) | payer MEDICARE, MEDICAID, SELFPAY ==
--- NOTE | 2020-03-23 | DI.MG.S_ITS ---
BILATERAL DIGITAL DIAGNOSTIC MAMMOGRAM 3D/2D: 03/23/2020 CLINICAL: Right breast pain. Comparison is made to exams dated: 05/19/2019 mammogram, 04/06/2018 mammogram, and 04/02/2017 mammogram - [facility]. The tissue of both breasts is heterogeneously dense. This may lower the sensitivity of mammography. No significant masses, calcifications, or other findings are seen in either breast. IMPRESSION: NEGATIVE There is no abnormality seen in the right breast to correspond with the diffuse pain, however, clinical followup is recommended. There is no mammographic evidence of malignancy. A 1 year screening mammogram is recommended. This exam was interpreted at Station ID: [id number]. NOTE: For mammograms, a report in lay terms will be sent to the patient. Approximately 15% of breast malignancies will not be visualized mammographically. In the management of a palpable breast mass, a negative mammogram must not discourage biopsy of a clinically suspicious lesion. Electronically Signed By: Agustin ghotra/maggie:03/23/2020 14:04:09 letter sent: Clinical Evaluation ACR BI-RADS Category 1: Negative [id number]
== END ==
PROVIDERS: PCP Physician Assistant Medical; Referring Provider Physician Assistant Medical; Visit Provider Physician Assistant Medical
DX: N64.4 Mastodynia (principal)
CPT/HCPCS: 77066; G0279

== ENCOUNTER → 2020-04-03 09:40 | Outpatient (CLI) | payer MEDICARE, MEDICAID, SELFPAY ==
--- NOTE | 2020-04-03 | DI.US.S_ITS ---
ULTRASOUND OF RIGHT BREAST: 04/03/2020 CLINICAL: Right breast pain. Comparison is made to exams dated: 03/23/2020 mammogram - [facility], 05/19/2019 mammogram, 04/06/2018 mammogram, and 04/02/2017 mammogram - [facility]. Real-time ultrasound of the right breast was performed. Bush scale images of the real-time examination were reviewed. No significant abnormalities were seen sonographically in the right breast. IMPRESSION: BENIGN There is no sonographic evidence of malignancy. There are no abnormalities seen in the right breast to correspond with the areas of clinical concern and pain at 5, 6, 7, 8, 9, 10, 11, and 12 o'clock, however, clinical followup is recommended for . There is no abnormality seen in the right axilla to correspond with the area of clinical concern and pain in the right axilla, however, clinical followup is recommended for persistent/worsening symptoms or development of any clinically suspicious findings. A 1 year screening mammogram is recommended. Findings and recommendations were conveyed to the patient during today's visit. This exam was interpreted at Station ID: [id number]. Electronically Signed By: Humberto Reyes M.D. aty/:04/03/2020 11:30:06 letter sent: Clinical Evaluation Ultrasound BI-RADS: 2 Benign
== END ==
PROVIDERS: PCP Physician Assistant Medical; Referring Provider Physician Assistant Medical; Visit Provider Physician Assistant Medical
DX: N64.4 Mastodynia (principal)
CPT/HCPCS: 76642

== ENCOUNTER → 2020-05-02 10:05 | Outpatient (CLI) | payer MEDICARE, MEDICAID, SELFPAY ==
--- NOTE | 2020-05-02 | DI.RAD.S_ITS ---
PROCEDURE: XR ELBOW RT MIN 3V INDICATIONS: Pain in right elbow,Pain in right elbow, TECHNIQUE: 3 views of the elbow were acquired. COMPARISON: None. FINDINGS: Bones: No fracture. Subchondral sclerosis and bulky osteophyte formation. Narrowing of the ulnotrochlear joint space. Soft tissues: No elbow joint effusion. No suspicious soft tissue calcifications. IMPRESSION: Severe degenerative changes and spurring. If the patient's pain or other symptoms persist, consider further evaluation with MRI Dictated by: Vel Hadley M.D. on 05/02/2020 at 13:09 Approved by: Vel Hadley M.D. on 05/02/2020 at 13:10
--- NOTE | 2020-05-02 | DI.RAD.S_ITS ---
PROCEDURE: XR ELBOW LT MIN 3V INDICATIONS: Pain in left elbow,Pain in right elbow, TECHNIQUE: 3 views of the elbow were acquired. COMPARISON: None. FINDINGS: Bones: No definite fracture. Extensive marginal spurring is present. There is subchondral sclerosis Soft tissues: No elbow joint effusion. No suspicious soft tissue calcifications. IMPRESSION: Left elbow joint degeneration. If the patient's pain or other symptoms persist, consider further evaluation with MRI Dictated by: Vel Hadley M.D. on 05/02/2020 at 13:07 Approved by: Vel Hadley M.D. on 05/02/2020 at 13:09
== END ==
PROVIDERS: PCP Physician Assistant Medical
DX: M25.521 Pain in right elbow (principal); M25.522 Pain in left elbow; M19.022 Primary osteoarthritis, left elbow; G89.29 Other chronic pain
CPT/HCPCS: 73080

== ENCOUNTER → 2020-05-09 07:38 | Outpatient (CLI) | payer MEDICARE, MEDICAID, SELFPAY ==
--- NOTE | 2020-05-09 | DI.US.S_ITS ---
PROCEDURE: US PELVIC COMPLETE INDICATIONS: HISTORY OF LEFT OVARIAN CYST TECHNIQUE: Real-time scanning was performed of the pelvic organs, with image documentation. Additional endovaginal scanning was necessary due to incomplete visualization of the adnexal and endometrial structures by transabdominal scanning. COMPARISON: [facility], , PELVIC COMPLETE, 08/19/2017, 9:52. FINDINGS: Transabdominal scanning: Limited scanning through the kidneys shows no hydronephrosis. No pathologic free abdominal or pelvic fluid. Endovaginal scanning: Uterus: Uterus is normal in size at 8.9 x 5.9 x 4.4 cm. The endometrium measures 4.0 mm in combined thickness. 11 mm intramural fibroid redemonstrated similar to prior examination. Ovaries: Right ovary measures 3.1 x 2.4 x 2.1 cm. Left ovary is not clearly seen. Left adnexal tubular cystic structure redemonstrated measuring 6.9 x 5.4 x 4.6 cm increased in size compared to prior measuring 4.8 x 3.2 x 2.6 cm. IMPRESSION: Increase in size of cystic tubular structure within the left adnexa measuring up to 6.9 cm suggestive of possible hydrosalpinx. Differential diagnosis would also include other benign and malignant etiologies. If indicated, pre and post-contrast gynecologic protocol MRI could be performed for further assessment. Gynecologic consultation is recommended. Dictated by: Felix CORNELIUS Interpreted: Aidan Collazo MD on 05/09/2020 at 16:16 Approved by: Aidan Collazo M.D. on 05/09/2020 at 17:01
== END ==
PROVIDERS: PCP Physician Assistant Medical; Referring Provider Physician Assistant Medical; Visit Provider Physician Assistant Medical
DX: N83.292 Other ovarian cyst, left side (principal); R19.00 Intra-abdominal and pelvic swelling, mass and lump, unspecified site
CPT/HCPCS: 76856

== ENCOUNTER → 2021-02-15 12:32 | Outpatient (CLI) | payer MEDICARE, MEDICAID, SELFPAY ==
--- NOTE | 2021-02-15 | DI.US.S_ITS ---
PROCEDURE: US THYROID INDICATIONS: NONTOXIC SINGLE THYROID NODULE TECHNIQUE: Real-time scanning was performed of the thyroid gland, with image documentation. COMPARISON: None. FINDINGS: Right: Thyroid lobe measures 6.0 x 2.0 x 2.5 cm, and is homogeneous in echotexture. Left: Thyroid lobe measures 5.7 x 1.5 x 1.8 cm, and is homogenous in echotexture. Isthmus: 3 mm thick. Nodule number: 1 Location: Left middle pole/lower pole Size: 1.0 x 0.7 x 1.2 cm. Composition: Solid and spongiform Echogenicity: Isoechoic with anechoic spaces Shape: wider than tall. Margins: Smooth Echogenic foci: None Total points: 3 ACR TI-RADS category: Mildly suspicious Nodule number: 2 Location: Right lower pole Size: 0.9 x 0.8 x 0.5 cm. Composition: Spongiform Echogenicity: Hypoechoic Shape: wider than tall. Margins: Irregular Echogenic foci: Punctate Total points: 7 ACR TI-RADS category: Highly suspicious Nodule number: 3 Location: Right middle pole Size: 2.1 x 1.1 x 1.2 cm. Composition: Spongiform Echogenicity: Hyperechoic and hypoechoic Shape: wider than tall. Margins: Smooth Echogenic foci: None Total points: 2 ACR TI-RADS category: Not suspicious Nodule number: 4 Location: Right lower pole Size: 2.6 x 0.9 x 1.3 cm. Composition: Solid and spongiform Echogenicity: Hypoechoic Shape: wider than tall. Margins: Smooth Echogenic foci: None Total points: 4 ACR TI-RADS category: Moderately suspicious IMPRESSION: 1. Multinodular thyroid 2. Nodule to is a highly suspicious nodule that is less than 1 cm, and parents yearly follow-up every year x5 years 3. Nodule 4 is a moderately suspicious nodule of sufficient size to merit biopsy. However, based on patient history, she has already undergone biopsy. Recommend further workup based on prior biopsy results and comparison with previous imaging, if possible. ACR TI-RADS definitions and recommendations: TI-RADS 1 (benign): 0 points. FNA not needed. TI-RADS 2 (not suspicious): 2 points. FNA not needed. TI-RADS 3 (mildly suspicious): 3 points. * FNA if 2.5 cm or larger, follow up if 1.5 cm or larger (at 1, 3, and 5 years). TI-RADS 4 (moderately suspicious): 4-6 points. * FNA if 1.5 cm or larger, follow up if 1 cm or larger (at 1, 2, 3, and 5 years). TI-RADS 5 (highly suspicious): 7 points or more. * FNA if 1 cm or larger, follow up if 0.5 cm or larger (every year for 5 years). Dictated by: Tez Jacobs M.D. on 02/16/2021 at 8:14 Approved by: Tez Jacobs M.D. on 02/16/2021 at 10:20
== END ==
PROVIDERS: PCP Physician Assistant Medical; Referring Provider Physician Assistant Medical; Visit Provider Physician Assistant Medical
DX: E04.2 Nontoxic multinodular goiter (principal)
CPT/HCPCS: 76536

== ENCOUNTER → 2021-11-06 08:29 | Outpatient (CLI) | payer MEDICARE, MEDICAID, SELFPAY ==
--- NOTE | 2021-11-06 | DI.RAD.S_ITS ---
PROCEDURE: FL SHOULDER INJECTION MR/CT RT INDICATIONS: ACUTE RIGHT SHOULDER PAIN COMPARISON: None. TECHNIQUE: The indications, alternatives, benefits, risks, and complications of the procedure were explained to the patient. Written informed consent was obtained and placed in the chart. The shoulder was examined fluoroscopically and a site for needle placement chosen for entry into the glenohumeral joint from an anterior approach. The skin was prepped and draped in a sterile fashion, and 1% lidocaine infiltrated from skin down to joint capsule. A spinal needle was inserted into the glenohumeral joint, and a small amount of iodinated contrast media injected to confirm intra-articular placement of the needle tip. This was followed by approximately 12 mL of iodinated contrast. The needle was removed and a dressing was applied. The patient was given postprocedural instructions and sent to the CT suite for imaging. FINDINGS: A single fluoroscopic spot image demonstrates intra-articular location of injected iodinated contrast. IMPRESSION: Successful fluoroscopically guided administration of iodinated contrast solution into the shoulder joint for CT arthrogram. Dictated by: Eve Gamino MD, PhD on 11/06/2021 at 16:06 Approved by: Eve Gamino MD, PhD on 11/06/2021 at 16:06
--- NOTE | 2021-11-06 09:31 | DI.CT.S_ITS ---
PROCEDURE: CT UE RT W CON INDICATIONS: ACUTE RIGHT SHOULDER PAIN TECHNIQUE: After the intra-articular administration of 12 mL of dilute non-ionic contrast, 1-1.5 mm thick sections acquired from the acromioclavicular joint to the inferior scapula, with coronal and sagittal reformatting. COMPARISON: [facility], CR, XR SHOULDER 2+ VIEWS BILATERAL, 10/03/2021, 8:12. FINDINGS: Image quality: Some images are degraded by motion artifact. Bones: No acute, displaced fracture. No significant arthrosis of the AC or glenohumeral joints. Soft tissues: Full-thickness tear of the supraspinatus tendon with retraction by approximately 2.1 cm. Partial articular surface tear of the infraspinatus tendon. Partial articular surface tear of the subscapularis tendon. The glenoid labrum appears intact. The biceps tendon appears unremarkable. The lung apices demonstrate no evidence of pneumothorax or consolidation. IMPRESSION: 1. Rotator cuff pathology as detailed above. Dictated by: Flaco Aaron M.D. on 11/06/2021 at 12:29 Approved by: Flaco Aaron M.D. on 11/06/2021 at 12:34
== END ==
PROVIDERS: PCP Physician Assistant Medical; Referring Provider Orthopaedic Surgery; Visit Provider Orthopaedic Surgery
DX: M75.121 Complete rotator cuff tear or rupture of right shoulder, not specified as traumatic (principal); M25.511 Pain in right shoulder; M67.911 Unspecified disorder of synovium and tendon, right shoulder; R29.898 Other symptoms and signs involving the musculoskeletal system
CPT/HCPCS: 23350; 73201; 77002

== ENCOUNTER → 2022-02-19 10:47 | Outpatient (CLI) | payer MEDICARE, MEDICAID, SELFPAY ==
--- NOTE | 2022-02-19 | DI.US.S_ITS ---
PROCEDURE: US THYROID INDICATIONS: Nontoxic single thyroid nodule TECHNIQUE: Real-time scanning was performed of the thyroid gland, with image documentation. COMPARISON: [facility], US, US THYROID, 02/15/2021, 12:46. FINDINGS: Right: Thyroid lobe measures 6.1 x 2.2 x 2.1 cm, and is homogeneous in echotexture. Left: Thyroid lobe measures 5.9 x 1.4 x 2.2 cm, and is homogenous in echotexture. Isthmus: 3.6 mm thick. Nodule number: 1 Location: Left mid/inferior Size: 1.2 x 0.7 x 1.2 cm. Composition: Solid Echogenicity: Hypoechoic Shape: wider than tall. Margins: Smooth Echogenic foci: None Total points: 4 ACR TI-RADS category: Moderately suspicious Nodule number: 2 Location: Left inferior Size: 0.9 x 0.8 x 1.3 cm. Composition: Predominantly solid Echogenicity: Hypoechoic Shape: wider than tall. Margins: Irregular Echogenic foci: None Total points: 6 ACR TI-RADS category: Moderately suspicious Nodule number: 3 Location: Right mid Size: 2.1 x 1.4 x 1.3 cm. Composition: Predominantly solid Echogenicity: Isoechoic Shape: Wider than tall Margins: Smooth Echogenic foci: None Total points: 3 ACR TI-RADS category: Mildly suspicious Nodule number: 4 Location: Right inferior Size: 2.8 x 0.8 x 1.6 cm. Composition: Predominantly solid Echogenicity: Isoechoic Shape: wider than tall. Margins: Lobulated Echogenic foci: None Total points: 5 ACR TI-RADS category: Moderately suspicious IMPRESSION: Multiple thyroid nodules. Based on size, imaging characteristics in criteria outlined below recommend ultrasound-guided fine-needle aspiration nodule #4 follow-up surveillance ultrasound of nodules #1, #2 and #3. ACR TI-RADS definitions and recommendations: TI-RADS 1 (benign): 0 points. FNA not needed. TI-RADS 2 (not suspicious): 2 points. FNA not needed. TI-RADS 3 (mildly suspicious): 3 points. * FNA if 2.5 cm or larger, follow up if 1.5 cm or larger (at 1, 3, and 5 years). TI-RADS 4 (moderately suspicious): 4-6 points. * FNA if 1.5 cm or larger, follow up if 1 cm or larger (at 1, 2, 3, and 5 years). TI-RADS 5 (highly suspicious): 7 points or more. * FNA if 1 cm or larger, follow up if 0.5 cm or larger (every year for 5 years). Dictated by: Eve Gamino MD, PhD on 02/19/2022 at 14:44 Approved by: Eve Gamino MD, PhD on 02/19/2022 at 15:33
== END ==
PROVIDERS: PCP Physician Assistant Medical; Referring Provider Physician Assistant Medical; Visit Provider Physician Assistant Medical
DX: E04.1 Nontoxic single thyroid nodule (principal)
CPT/HCPCS: 76536

== ENCOUNTER → 2024-04-13 07:43 | Outpatient (CLI) | payer MEDICARE, MEDICAID, SELFPAY ==
--- NOTE | 2024-04-13 | DI.MG.S_ITS ---
BILATERAL DIGITAL SCREENING MAMMOGRAM 3D/2D WITH CAD: 04/13/2024 CLINICAL: Routine screening. Comparison is made to exams dated: 04/09/2023 mammogram, 04/04/2022 mammogram, 03/19/2021 mammogram - [facility], 05/19/2019 mammogram, and 04/06/2018 mammogram - [facility]. Both breasts are heterogeneously dense, which may obscure small masses (category c / 51-75% glandular tissue). Current study was also evaluated with a Computer Aided Detection (CAD) system. There is a benign calcification in the right breast. There also are benign calcifications in the left breast. No significant masses, calcifications, or other findings are seen in either breast. There has been no significant interval change. IMPRESSION: BENIGN There is no mammographic evidence of malignancy. A 1 year screening mammogram is recommended. Based on the Tyrer Cuzick model (a risk assessment model) the patient's lifetime risk is 12.1% and her 10 year risk is 5.5%. According to the ACR, ACS, and NCCN guidelines, an annual breast MRI exam along with mammogram is recommended if the patient's lifetime risk is 20% or greater. This exam was interpreted at Station ID: [id number]. NOTE: For mammograms, a report in lay terms will be sent to the patient. Approximately 15% of breast malignancies will not be visualized mammographically. In the management of a palpable breast mass, a negative mammogram must not discourage biopsy of a clinically suspicious lesion. Electronically Signed By: Karri martines/maggie:04/14/2024 11:26:37 copy to: PAVEL FLORES letter sent: Normal Exam ACR BI-RADS Category 2: Benign Finding(s) 3342F
--- NOTE | 2024-04-13 | DI.US.S_ITS ---
PROCEDURE: US THYROID INDICATIONS: multiple thyroid nodules TECHNIQUE: Real-time scanning was performed of the thyroid gland, with image documentation. COMPARISON: [facility], US, US THYROID, 02/19/2022, 11:04. Outside Facility, US, US THYROID, 05/26/2023, 8:02. FINDINGS: Thyroid: Right lobe measures 6.3 x 2.2 x 2.2 cm. Left lobe measures 6.3 x 1.4 x 2.2 cm. Isthmus is 0.5 cm thick. Echotexture is heterogeneous. Nodule number: 1 Location: Left mid Size: 1.8 x 0.8 x 1.5 cm. Composition: Solid Echogenicity: Hypoechoic Shape: wider than tall. Margins: Smooth Echogenic foci: None Total points: 4 ACR TI-RADS category: Moderately suspicious Nodule number: 2 Location: Left inferior medial Size: 1.8 x 0.6 x 1.6 cm. Composition: Solid Echogenicity: Hypoechoic Shape: wider than tall. Margins: Irregular Echogenic foci: None Total points: 6 ACR TI-RADS category: Moderately suspicious Nodule number: 3 Location: Right mid Size: 1.9 x 0.8 x 1.2 cm. Composition: Spongiform Echogenicity: Hypoechoic Shape: wider than tall. Margins: Smooth Echogenic foci: None Total points: 2 ACR TI-RADS category: Not suspicious Nodule number: 4 Location: Right inferior Size: 2.4 x 1.1 x 1.9 cm. Composition: Spongiform Echogenicity: Hypoechoic Shape: wider than tall. Margins: Lobulated Echogenic foci: None Total points: 4 ACR TI-RADS category: Moderately suspicious IMPRESSION: Multinodular thyroid gland with several TIRADS 4 (moderately suspicious) nodules as detailed above. If not already accomplished, recommend fine needle aspiration of thyroid nodules 1, 2, and 4. Nodule 3 appears benign. ACR TI-RADS definitions and recommendations: TI-RADS 1 (benign): 0 points. FNA not needed. TI-RADS 2 (not suspicious): 2 points. FNA not needed. TI-RADS 3 (mildly suspicious): 3 points. * FNA if 2.5 cm or larger, follow up if 1.5 cm or larger (at 1, 3, and 5 years). TI-RADS 4 (moderately suspicious): 4-6 points. * FNA if 1.5 cm or larger, follow up if 1 cm or larger (at 1, 2, 3, and 5 years). TI-RADS 5 (highly suspicious): 7 points or more. * FNA if 1 cm or larger, follow up if 0.5 cm or larger (every year for 5 years). Dictated by: Humberto Reyes M.D. on 04/14/2024 at 12:30 Approved by: Humberto Reyes M.D. on 04/14/2024 at 12:52
== END ==
LOC: US 07:44
PROVIDERS: PCP Physician Assistant Medical; Referring Provider Internal Medicine Endocrinology, Diabetes & Metabolism; Visit Provider Internal Medicine Endocrinology, Diabetes & Metabolism
DX: Z12.31 Encounter for screening mammogram for malignant neoplasm of breast (principal); R92.333 Mammographic heterogeneous density, bilateral breasts; E04.2 Nontoxic multinodular goiter
CPT/HCPCS: 76536; 77063; 77067

== ENCOUNTER → 2024-05-19 08:24 | Outpatient (CLI) | payer MEDICARE, MEDICAID, SELFPAY ==
--- NOTE | 2024-05-19 08:27 | DI.US.S_ITS ---
PROCEDURE: US FINE NEEDLE ASPIRATION INDICATIONS: MULTIPLE THYROID NODULES TECHNIQUE: The indications, alternatives, benefits, risks, and complications of the procedure were explained to the patient. Written informed consent was obtained and placed in the chart. The thyroid region was examined sonographically and a site was chosen for ultrasound guided percutaneous sampling. The skin was prepared and draped in the usual fashion, and anesthetized with 1% lidocaine infiltrated from the skin down to the thyroid gland. Multiple passes were then performed, with contents emptied into an appropriate pathology specimen container. A bandage was applied to the area of access at completion of the study. COMPARISON: [facility], US, US THYROID, 04/13/2024, 7:53. FINDINGS: Location of lesion sampled: Left inferior (nodule #2 on ultrasound dated 04/13/2024) [place]: 22-25 gauge hypodermic needles. Number of passes: 13 Medications: 1% lidocaine for local anaesthesia. Complications: None. IMPRESSION: Successful ultrasound-guided thyroid nodule fine needle aspiration, with cytology results pending. Please see chart below for management recommendations based on cytology results. [facility] ReportingRecommendationsNon-diagnostic* Repeat US-guided FNA, with on-site cytology evaluation if possible. * Repeated non-diagnostic nodules without high suspicion US features: close observation vs surgical consult. * Consider surgery if nodule has high suspicion US features, grows >20% in 2 dimensions on followup, or patient has clinical risk factors for malignancy. Benign* If nodule has high suspicion US features: repeat US and FNA within 12 months. * If nodule has low to intermediate suspicion US features: repeat US at 12-24 months. If nodule grows (20% increase in at least 2 dimensions, with minimal increase of 2 mm or >50% change in volume), or development of new suspicious US features, then repeat FNA or continue followup. * If nodule has very low suspicion US features: followup US at >24 months. Atypia of undetermined significance, follicular lesion of undetermined significanceRepeat FNA, molecular testing, followup US, or surgical consult.Follicular neoplasm, suspicious for follicular neoplasmSurgical consult; also consider molecular testing. Suspicious for malignancySurgical consult.MalignantSurgical consult. Approved by: Aidan Collazo M.D. on 05/19/2024 at 15:35
--- NOTE | 2024-05-19 09:48 | PATH_ITS ---
Note [facility] Accession Number: [id number] TESTS RESULT FLAG UNITS REF RANGE LAB Clinician Provided Cytology Information No. of containers..01 Other (Miscellaneous) No. of containers..06 Previously Prepared Cytology Slide Source: LEFT THYROID NODULE #2 DIAGNOSIS: LEFT THYROID NODULE #2, FINE NEEDLE ASPIRATION. NEGATIVE FOR MALIGNANT CELLS. ADEQUATE FOR EVALUATION. COLLOID AND FOLLICULAR GROUPS ARE PRESENT. BENIGN FOLLICULAR (GOITEROUS) NODULE ([place] CATEGORY II), SEE COMMENT. COMMENT: MICROSCOPIC EXAMINATION REVEALS A MILDLY CELLULAR ASPIRATE, COMPOSED OF COLLOID, FOLLICULAR GROUPS WITHOUT SIGNIFICANT CYTOLOGIC OR ARCHITECTURAL ATYPIA, AND BACKGROUND MACROPHAGES. THESE FINDINGS SUPPORT A BENIGN FOLLICULAR (GOITEROUS) NODULE. CORRELATION WITH CLINICAL AND RADIOGRAPHIC FINDINGS IS RECOMMENDED. ACCORDING TO THE [place] REPORTING SYSTEM FOR THYROID CYTOPATHOLOGY, THE RISK OF MALIGNANCY IN THE CATEGORY BENIGN-CATEGORY II IS 0-3%; THEREFORE RECOMMEND CONTINUED ULTRASOUND SURVEILLANCE WITH REPEAT FNA IF THE NODULE SIGNIFICANTLY INCREASES IN SIZE. Pathologist ICD10: 01 E04.2 Signed out by: Omaira Pelayo MD, Pathologist NPI- [id number] Performed by: Omaira Givens, Store Clerk Cashier ([facility]) Gross description: 01 30 CC, COLORLESS, CLEAR RECIEVED: IN CYTOLYT WITH 8 ALCOHOL FIXED AND 8 QUICK STAINED SLIDES ALSO 1 RNA VIAL WILL ON 08-26-2024.VO /VDU 05/20/2024 0720 Local FLAG LEGEND: L-Low Normal,H-High Normal,LL-Alert Low,HH-Alert High <-Panic Low,>-Panic High,A-Abnormal,AA-Critical Abnormal Performed at: 01 [address] [facility], [place] [address] Agustin Joseph MD, Performed at: [address], [place], [place] [id number] MD Agustin Joseph MD Phone: [phone]
== END ==
PROVIDERS: PCP Physician Assistant Medical; Referring Provider Internal Medicine Endocrinology, Diabetes & Metabolism; Visit Provider Internal Medicine Endocrinology, Diabetes & Metabolism
DX: E04.2 Nontoxic multinodular goiter (principal)
CPT/HCPCS: 10005

== ENCOUNTER → 2024-12-01 08:17 | Outpatient (CLI) | payer MEDICARE, MEDICAID, SELFPAY ==
--- NOTE | 2024-12-01 08:19 | DI.US.S_ITS ---
PROCEDURE: US THYROID INDICATIONS: multiple thyroid nodules TECHNIQUE: Real-time scanning was performed of the thyroid gland, with image documentation. COMPARISON: [facility], US, US THYROID, 04/13/2024, 7:53. FINDINGS: Thyroid: Right lobe measures 6.4 x 2.3 x 2.4 cm. Left lobe measures 5.7 x 1.7 x 2.1 cm. Isthmus is 0.4 cm thick. Echotexture is homogeneous. Nodule number: 1 Location: Left mid Size: 1.8 x 0.8 x 1 cm. Slightly smaller Composition: Solid Echogenicity: Hypoechoic Shape: wider than tall. Margins: Ill-defined Echogenic foci: None Total points: 6 ACR TI-RADS category: 4, sampling is suggested Nodule number: 2 Location: Left inferior Size: 1.9 x 0.7 x 1.5 cm. Similar Composition: Solid Echogenicity: Hypoechoic Shape: wider than tall. Margins: Ill-defined Echogenic foci: None Total points: 6 ACR TI-RADS category: 4, sampling suggested Nodule number: 3 Location: Right mid Size: 2.1 x 1.1 x 1.1 cm. Similar Composition: Partially solid Echogenicity: Hypoechoic Shape: wider than tall. Margins: Ill-defined Echogenic foci: None Total points: 5 ACR TI-RADS category: 4, sampling is suggested. Nodule number: 4 Location: Right inferior Size: 3.4 x 1.1 x 1.9 cm. Slightly larger Composition: Solid Echogenicity: Hypoechoic Shape: wider than tall. Margins: Ill-defined Echogenic foci: None Total points: 6 ACR TI-RADS category: 4, sampling suggested. IMPRESSION: Multi nodular thyroid as before. Nodule 4 in the right inferior region is slightly larger. If sampling is pursued, the largest/more suspicious nodule from each lobe should be sampled. ACR TI-RADS definitions and recommendations: TI-RADS 1 (benign): 0 points. FNA not needed. TI-RADS 2 (not suspicious): 2 points. FNA not needed. TI-RADS 3: 3 points. * FNA if 2.5 cm or larger, follow up if 1.5 cm or larger (at 1, 3, and 5 years). TI-RADS 4: 4-6 points. * FNA if 1.5 cm or larger, follow up if 1 cm or larger (at 1, 2, 3, and 5 years). TI-RADS 5: 7 points or more. * FNA if 1 cm or larger, follow up if 0.5 cm or larger (every year for 5 years). Dictated by: Julien Loomis M.D. on 12/01/2024 at 11:10 Approved by: Julien Loomis M.D. on 12/01/2024 at 11:14
== END ==
LOC: US 08:18
PROVIDERS: PCP Physician Assistant Medical; Referring Provider Internal Medicine Endocrinology, Diabetes & Metabolism; Visit Provider Internal Medicine Endocrinology, Diabetes & Metabolism
DX: E04.2 Nontoxic multinodular goiter (principal)
CPT/HCPCS: 76536